=== PATIENT | female | born 1950 | race Caucasian/White ===

== ENCOUNTER 2018-08-21 08:50 | Day surgery (SDC) | payer MEDICARE ==
[~2018-08-21] VITALS: Ht 165.1 cm; Wt 111.1 kg
[~2018-08-21 08:50] MED LIST: AMLODIPINE BESY10 MG PO; ASPIR-LOW81 MG PO; CINNAMON500 MG PO; FUROSEMIDE20 MG PO; GABAPENTIN300 MG PO; GARLIC1000 MG PO; GINGER500 MG PO; HYDROXYZINE HCL50 MG PO; HYZAAR 100-12.1 EACH PO; LEFLUNOMIDE20 MG PO; MILK THISTLE175 M2 PO; MULTIVITAMINS1 EAC8 PO; ONDANSETRON HCL4 MG PO; PRILOSEC OTC20 MG PO; REQUIP4 MG PO; SULFASALAZINE500 MG PO; TRAZODONE HCL50 MG PO; VENTOLIN HFA18 GM INH; ZYRTEC10 MG PO
[2018-08-21] MEDS ORDERED: TRAMADOL HCL50 MG PO (10:35)
--- NOTE | 2018-08-21 11:00 | NUR ---
08/21/18 1100 Sheets,Agnelina 1034 PT ARRIVED TO PACU WITH ORAL AND NASAL AIRWAY IN PLACE AND ON 6L VIA MASK.
--- NOTE | 2018-08-23 12:30 | OR ---
[facility] [address], [place] [address] Signed DATE OF OPERATION: 08/21/2018 SURGEON: Roland Thomson MD PREOPERATIVE DIAGNOSIS: Rheumatoid nodule, left forearm. POSTOPERATIVE DIAGNOSIS: Rheumatoid nodule, left forearm. PROCEDURE PERFORMED: Excision of mass, left forearm. RESEARCH ANALYST: BART Hutton. Gaby was present for all portions of the procedure. ANESTHESIA: Kindred block. TOURNIQUET TIME: 24 minutes. SPECIMEN: A 2 x 2 x 3 cm mass to Pathology. BRIEF HISTORY: Jenny is a 68-year-old female with a symptomatic mass in her left volar forearm. She currently walks with a walker and uses a platform on that side. This is painful for her. Risks, benefits, and alternatives of surgical excision were discussed with her. She has had other mass issues in the past. DESCRIPTION OF PROCEDURE: Once consent was obtained, she was taken to the operating room after adequate anesthesia. She was placed on operating room table. All downside pressure points were well padded. After albertina block was established, the arm was prepped and draped in standard sterile fashion. The mass was marked out and a 2 cm incision was made overlying. This was carried through the skin. The mass was fairly densely adherent to the underlying subcutaneous tissue. Using careful dissection with a 15 blade we were able to remove the skin off with one buttonhole. The mass was then elevated off the underlying fascia and again similarly dissected. The bleeders were cauterized with Electronically Signed By: ROLAND THOMSON MD 08/23/18 1230 PATIENT NAME: JENNY HOLLINS OPERATIVE REPORT DATE OF : 48 REPORT #: [id number] PHYSICIAN: ROLAND THOMSON MD PCP: Saul Boston DO REPORT IS CONFIDENTIAL AND NOT TO BE RELEASED WITHOUT AUTHORIZATION [facility] [address], [place] [address] Signed bipolar as we went. The mass was then passed off the table, sent to Pathology in formalin. The wound bed was then carefully examined and all bleeders were cauterized using the bipolar. The skin flaps were then tacked down to the underlying fascia using 3-0 Monocryl. The subcutaneous tissue was closed with 3-0 Monocryl and the skin with a Dermabond mesh. The patient's wounds were infiltrated with 9 mL of 0.25% Marcaine with epinephrine. The wound was then dressed with a Mepilex Ag dressing and Des wrap. She tolerated the procedure well. All sponge, needle, and instrument counts were correct. Roland Thomosn MD BA/FRANSISCO /[id number] Copies: ~ Electronically Signed By: ROLAND THOMSON MD 08/23/18 1230 PATIENT NAME: JENNY HOLLINS OPERATIVE REPORT DATE OF : 48 REPORT #: [id number] PHYSICIAN: ROLAND THOMSON MD PCP: Saul Boston DO REPORT IS CONFIDENTIAL AND NOT TO BE RELEASED WITHOUT AUTHORIZATION
== END 2018-08-21 11:30 | disposition home or self-care (01) ==
LOC: DS 08:50 → OPS 08:50 → DS 10:00 → OPS 11:30
PROVIDERS: Specialist
PROC: 0HBEXZZ Excision of Left Lower Arm Skin, External Approach (ICD-10-PCS; principal; 2018-08-21 10:00)
DX: M06.332 Rheumatoid nodule, left wrist (principal); I12.9 Hypertensive chronic kidney disease with stage 1 through stage 4 chronic kidney disease, or unspecified chronic kidney disease; N18.9 Chronic kidney disease, unspecified; J45.909 Unspecified asthma, uncomplicated; G47.33 Obstructive sleep apnea (adult) (pediatric); E66.01 Morbid (severe) obesity due to excess calories; Z88.8 Allergy status to other drugs, medicaments and biological substances; Z88.1 Allergy status to other antibiotic agents; Z79.899 Other long term (current) drug therapy; Z79.82 Long term (current) use of aspirin; Z68.41 Body mass index [BMI] 40.0-44.9, adult; Z86.73 Personal history of transient ischemic attack (TIA), and cerebral infarction without residual deficits
CPT/HCPCS: 01830; 88305; J0690; J1100; J1885; J2250; J2405; J2704; J2765; J3010; J7120